=== PATIENT | male | born 1965 | race African-American/Black ===

== ENCOUNTER 2017-10-16 07:39 | Day surgery (SDC) | payer BC, OTHER ==
[~2017-10-16] VITALS: Ht 188 cm; Wt 106.6 kg
[2017-10-16] MEDS ORDERED: SIMETHICONE 40 MG/0.6 ML ML ONE (07:47)
[2017-10-16] MEDS: fentaNYL CITRATE/PF 100 MCG/2 ML AMP ONE ×3 (08:53→08:57)
[2017-10-16] MEDS: MIDAZOLAM HCL 5 MG/5 ML VIAL ONE ×4 (08:53→08:59)
[2017-10-16 14:31] VITALS: BP_SYST 127
== END 2017-10-16 10:40 | disposition home or self-care (01) ==
LOC: SDS 07:39 → SMU 07:51 → SDS 10:40
PROVIDERS: ATTEND Internal Medicine
DX: Z12.11 Encounter for screening for malignant neoplasm of colon (principal); D12.0 Benign neoplasm of cecum; K57.30 Diverticulosis of large intestine without perforation or abscess without bleeding; I21.9 Acute myocardial infarction, unspecified; Z79.899 Other long term (current) drug therapy; Z68.30 Body mass index [BMI] 30.0-30.9, adult; Z87.891 Personal history of nicotine dependence
CPT/HCPCS: 45380; 88305; J2250; J3010; J7030